=== PATIENT | male | born 1950 | race African-American/Black ===

== ENCOUNTER 2024-12-04 01:10 | Emergency (ER) | payer MEDICARE, BC, SELFPAY ==
[2024-12-04 01:16] VITALS: BP 162/86
--- NOTE | 2024-12-04 01:25 | ED.GENMED ---
History of Present Illness
<Nicolás Hill MD - Last Filed: 12/04/24 02:02>
General
Chief Complaint: Chest Pain
Source: patient
Exam Limitations: none
Time Seen by Provider: 12/04/24 01:17
Nursing documentation reviewed up to this point in time: agreed with
History of Present Illness
History of Present Illness:
74-year-old male with past medical history of Parkinson's disease, hypertension, hyperlipidemia, diabetes who presents to the emergency department for evaluation of chest pain. Patient reports that he had a few episodes over the past 3 to 4 days
but today had 3 episodes of chest pain. After the third episode of chest pain tonight his symptoms did not completely resolve which prompted him to come to the ER. He says that episodes typically last for a few seconds to a minute although again
the last episode did not completely resolved. He describes a vague aching 'like someone punched me in the chest.' He says that it is intense enough to have him doubled over. Symptoms radiate towards his right scapula. He has not noticed any
triggering factor�she says that every episode has been at rest and there is never been an exertional component. No relation to food. He he denies any associated shortness of breath. Denies any nausea, vomiting, diaphoresis. He has not had any
abdominal pain. Denies any recent fever, chills, coughing. No swelling or pain in the legs. 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 Denies smoking, reports occasional
alcohol, no drug use.
Past History
<Nicolás Hill MD - Last Filed: 12/04/24 02:02>
Past History
ED Past Medical History: HTN, Hypercholesterolemia, NIDDM and Other (Diverticulosis, Arthritis)
ED Past Surgical History: None and Appendectomy
Social History
Tobacco: Non-smoker
Alcohol: Occasional
Drug: None
Personal:
Living: with family
Employment: Retired
Family History
Family History: Hypertension; Negative Early CAD or CAD
Review of Systems
<Nicolás Hill MD - Last Filed: 12/04/24 02:02>
Review of Systems
All Other Systems: ROS reviewed and negative except as documented in HPI and ROS
Constitutional: Denies fever or chills
Respiratory: Denies cough or trouble breathing
Cardiac: Reports chest pain; Denies diaphoresis, palpitations or syncope
ABD/GI: Denies abdominal pain, nausea or vomiting
: Denies flank pain
Musculoskeletal: Denies edema or neck pain
Neurological: Denies dizzy or headache
Phy Exam
<Nicolás Hill MD - Last Filed: 12/04/24 02:02>
Physical Exam
Physical Exam:
General: Awake, alert, oriented x3; no acute distress
Head: Normocephalic, atraumatic
Eyes: Conjunctiva normal, sclera
Throat: Airway intact, handling secretions
Neck: Trachea midline, no JVD
Lungs: Clear to auscultation bilaterally, no wheezing, rales, rhonchi
Heart: Regular rate and rhythm, no murmurs, gallops, or rubs
Abd: Soft, non distended, nontender to deep palpation
Neuro: No gross deficits
Skin: no rash in area of concern
Extremities: No edema in extremities, no calf tenderness, equal pulses in all extremities
Scores
<Nicolás Hill MD - Last Filed: 12/04/24 02:02>
Heart Failure Risk
Heart Failure Risk Score: Not Applicable
Heart Score for Chest Pain Patients
STEMI patient?: No
History: Slightly or Non-Suspicious
ECG: Normal
Age: >/= 65 years
Risk Factors: >/= 3 Risk Factors or History of CAD
Troponin: </= Normal Limit
Heart Score for Chest Pain Patients: 4
Heart Score Risk: 20.3% MACE over next 6 weeks
Withdrawal Assessment of Alcohol
Withdrawal Assessment Completed?: Not applicable
<Too Jordan DO - Last Filed: 12/04/24 05:15>
Heart Score for Chest Pain Patients
Heart Score for Chest Pain Patients: 4
Heart Score Risk: 20.3% MACE over next 6 weeks
Course
<Nicolás Hill MD - Last Filed: 12/04/24 02:02>
Orders/Labs/Results
Orders:
Orders
12/04/24 01:10
ECG [Electrocardiogram (*1)] Urgent
Reason for Study: Chest Pain
12/04/24 01:11
EKG- Treatment ONCE
12/04/24 01:18
CR Chest - 2 Views Urgent
Comment:
Reason For Exam: chest pain
12/04/24 01:39
Complete Blood Count/With Diff Urgent
Comprehensive Metabolic Panel Urgent
D-Dimer Urgent
Troponin I Urgent
12/04/24 04:15
Troponin I Urgent
Abnormal Lab Results
12/04/24
01:39
Chloride 109 H mmol/L
(98-107)
Carbon Dioxide 20 L mmol/L
(22-30)
BUN 21 H mg/dl
(9-20)
Glucose 104 H mg/dl
(70-99)
12/04/24 01:39
12/04/24 01:39
Vital Signs
Initial and Last Documented VS:
Initial Vital Signs
Temp Pulse Resp BP Pulse Ox
98.0 F 74 18 162/86 96
12/04/24 01:16 12/04/24 01:16 12/04/24 01:16 12/04/24 01:16 12/04/24 01:16
Last Documented Vital Signs
Temp Pulse Resp BP Pulse Ox
98.0 F 62 14 127/88 97
12/04/24 01:16 12/04/24 05:12 12/04/24 05:12 12/04/24 05:12 12/04/24 05:12
<Too Jordan, DO - Last Filed: 12/04/24 05:15>
Orders/Labs/Results
Orders:
Orders
12/04/24 01:10
ECG [Electrocardiogram (*1)] Urgent
Reason for Study: Chest Pain
12/04/24 01:11
EKG- Treatment ONCE
12/04/24 01:18
CR Chest - 2 Views Urgent
Comment:
Reason For Exam: chest pain
12/04/24 01:39
Complete Blood Count/With Diff Urgent
Comprehensive Metabolic Panel Urgent
D-Dimer Urgent
Troponin I Urgent
12/04/24 04:15
Troponin I Urgent
Abnormal Lab Results
12/04/24
01:39
Chloride 109 H mmol/L
(98-107)
Carbon Dioxide 20 L mmol/L
(22-30)
BUN 21 H mg/dl
(9-20)
Glucose 104 H mg/dl
(70-99)
12/04/24 01:39
12/04/24 01:39
Vital Signs
Initial and Last Documented VS:
Initial Vital Signs
Temp Pulse Resp BP Pulse Ox
98.0 F 74 18 162/86 96
12/04/24 01:16 12/04/24 01:16 12/04/24 01:16 12/04/24 01:16 12/04/24 01:16
Last Documented Vital Signs
Temp Pulse Resp BP Pulse Ox
98.0 F 62 14 127/88 97
12/04/24 01:16 12/04/24 05:12 12/04/24 05:12 12/04/24 05:12 12/04/24 05:12
<Nicolás Hill MD - Last Filed: 12/04/24 02:02>
MDM/Problems Addressed
Differential Diagnosis Includes:
Costochondritis, GERD, pneumothorax, ACS, pericarditis, PE, much lower suspicion for aortic dissection based on clinical appearance
MDM/Problems Addressed:
74-year-old male with history as noted presents for evaluation of chest pain intermittent over the past few days, today had 3 episodes the last of which did not completely resolve which prompted ER visit. Hypertensive otherwise normal vitals.
Physical exam as above. EKG in triage shows no STEMI. Will place an IV send labs including a CBC and a CMP, serial troponins. Check D-dimer. Check chest x-ray. Will monitor closely reassess after the above.
Chronic conditions affecting care:
Hypertension, hyperlipidemia, diabetes
Acute Exacerbation and/or Progression of Chronic Illness:
Acutely hypertensive
Acute Exacerbation and/or Progression of Chronic Illness: HTN
<Nicolás Hill MD - Last Filed: 12/04/24 02:02>
*Radiology
Radiology exam reviewed: preliminary read by ED provider and radiology read reviewed
*Pulse Oximetry
Patient hypoxic: no (96%)
*EKG
Interpreted by ED Provider?: Yes
Comparison EKG: no changes
Heart Rate: 69
Rate: normal
Rhythm: sinus and PAC's
[place]: normal axis
Interval: first degree heart block
QRS Pattern: normal QRS
Ischemia: no ischemia (No acute ischemia no change from prior)
*Critical Care Note
Total Time (30-74mins, 75-104mins- exclusive of procedures): Not Applicable
Data Reviewed
Source: patient and records
<Too Jordan DO - Last Filed: 12/04/24 05:15>
Update Note
Update Note:
Received patient in signout. Negative troponin serially, negative D-dimer and chest x-ray stable for discharge and follow-up with primary care. Doubt ACS or PE.
ED Attending Note
<Nicolás Hill MD - Last Filed: 12/04/24 02:02>
-
Portions of this chart may have been created with voice recognition software.� Occasional wrong word or��sound alike� substitutions may have occurred due to the inherent limitations of voice recognition software.
Discharge Plan
Departure
Patient Disposition: Home (Routine Discharge)
Date of Disposition: 12/04/24
Time of Disposition: 05:14
Patient with high blood pressure during this ER visit?: Yes
Condition: Good
Discharge Problem:
Chest pain
Instructions: Chest Pain PCP Follow Up, BLOOD PRESSURE
Prescriptions:
No Action
amlodipine 10 MG tablet
10 mg PO DAILY
hydrochlorothiazide 25 MG tablet
25 mg PO DAILY
losartan 50 MG tablet
50 mg PO DAILY
sitagliptin phosphate [Januvia] 100 MG tablet
100 mg PO DAILY
multivitamin [Multi-Day] 1 EACH tablet
1 tab PO DAILY
aspirin 81 MG tablet,chewable
81 mg PO DAILY
lansoprazole [Prevacid] 30 MG capsule,delayed release(DR/EC)
30 mg PO HS Qty: 30 0RF
meclizine 25 mg tablet
25 mg PO BID PRN (Reason: dizziness) Qty: 7 0RF
Referrals:
Sacha Scott DO [Family Provider, Family Practice] - Call in 1-3 days for appt
Interventions
Interventions:
*Risk Screen - Suicide Last Done: 12/04/24 01:16
*Neglect/Abuse Screening Last Done: 12/04/24 01:16
ED- Cardiac Assessment Last Done: 12/04/24 01:36
Discharge Date and Time
Print Language: [place]
[2024-12-04 01:27] VITALS: BP 139/88
[2024-12-04 01:36] VITALS: BMI 35.6
[2024-12-04 01:49] LABS: % Basophils 0.6 % (0-2); % Eosinophils 3.7 % (0-6); % Immature Granulocytes 0.2 % (0-0.5); % Lymphocytes 29.7 % (20.5-51.1); % Monocytes 6.8 % (1.7-9.3); Absolute Basophils 0.1 10^3/uL (0-0.2); Absolute Eosinophils 0.3 10^3/uL (0-0.7); Absolute Lymphocytes 2.5 10^3/uL (1.2-3.4); Absolute Monocytes 0.6 10^3/uL (0.1-0.6); Absolute Neutrophils 4.9 10^3/uL (1.4-6.5); Hematocrit 43.4 % (39.0-52.0); Hemoglobin 14.6 g/dL (13.0-18.0); Mean Corp Hgb Conc. 33.6 g/dL (33.0-37.0); Mean Corpuscular Hgb 28.3 pg (27.0-31.0); Mean Corpuscular Volume 84.1 fL (80.0-94.0); Mean Platelet Volume 9.2 fL (7.4-10.4); Nucleated Red Blood Cells % 0 % (-); Platelet Count 213 10^3/uL (130-400); Red Blood Cell Count 5.16 10^6/uL (4.70-6.10); Red Cell Dist. Width 14.5 % (11.5-14.5); White Blood Cell Count 8.3 10^3/uL (4.8-10.8)
[2024-12-04 02:11] LABS: ALT (SGPT) < 10 U/L (0-50); AST (SGOT) 24 U/L (17-59); Albumin 4.4 g/dl (3.5-5.0); Alkaline Phosphatase 87 U/L (38-126); Blood Urea Nitrogen 21 mg/dl (9-20); Calcium 9.8 mg/dl (8.4-10.2); Carbon Dioxide 20 mmol/L (22-30); Chloride 109 mmol/L (98-107); Estimated Creatinine Clearance 58 ml/min; Glucose 104 mg/dl (70-99); Sodium 139 mmol/L (135-145); Total Bilirubin 0.9 mg/dl (0.2-1.3); Total Protein 7.4 g/dl (6.3-8.2); eGFR 57.29
[2024-12-04 02:23] LABS: Troponin I < 0.012 ng/ml
[2024-12-04 02:59] LABS: D-Dimer 0.31 ug/mlFEU (0.00-0.50)
[2024-12-04 04:15] VITALS: BP 131/90
[2024-12-04 05:08] LABS: Troponin I < 0.012 ng/ml
[2024-12-04 05:12] VITALS: BP 127/88
== END 2024-12-04 05:26 | disposition home or self-care (01) ==
LOC: EMR 01:10
PROVIDERS: EMERGENCY PHYSICIAN Emergency Medicine; FAMILY PHYSICIAN Family Medicine
DX: R07.9 Chest pain, unspecified (principal); I49.1 Atrial premature depolarization; I44.0 Atrioventricular block, first degree; E78.00 Pure hypercholesterolemia, unspecified; I10 Essential (primary) hypertension; E11.9 Type 2 diabetes mellitus without complications; G20.A1 Parkinson's disease without dyskinesia, without mention of fluctuations; I25.10 Atherosclerotic heart disease of native coronary artery without angina pectoris
CPT/HCPCS: 99285; 71046; 80053; 84484; 85025; 85379; 93005